=== PATIENT | female | born 1985 ===

== ENCOUNTER → 2022-11-10 | Outpatient (CLI) | payer OTHER ==
[~2022-11-10] MED LIST: METFORMIN HCL1000 M2 PO
== END | disposition home or self-care (01) ==
LOC: SONOGRAMA 10:54
PROVIDERS: ATTEND Obstetrics & Gynecology
DX: R10.2 Pelvic and perineal pain (principal); N92.6 Irregular menstruation, unspecified; Z34.01 Encounter for supervision of normal first pregnancy, first trimester

== ENCOUNTER 2022-11-13 12:29 | Day surgery (SDC) | payer OTHER ==
[2022-11-13] MEDS ORDERED: METFORMIN HCL1000 M2 PO (12:54)
== END 2022-11-13 20:45 | disposition home or self-care (01) ==
LOC: CIR.AMB 12:29
PROVIDERS: ATTEND Obstetrics & Gynecology
DX: O02.1 Missed abortion (principal); O72.2 Delayed and secondary postpartum hemorrhage; Z20.822 Contact with and (suspected) exposure to COVID-19